=== PATIENT | female | born 1950 | race Caucasian/White ===

== ENCOUNTER 2020-07-14 16:33 | Emergency (ER) | payer MEDICARE, OTHER, SELFPAY ==
[2020-07-14] VITALS (30 sets, daily range): BP systolic 118–160; BP diastolic 67–96; PULSE 84–104; RESP 13–32; TEMP 37.8–38.6; O2SAT 85–100
--- NOTE | 2020-07-14 16:49 | DI.RAD.S_ITS ---
PROCEDURE: XR CHEST 1V INDICATIONS: suspected sepsis TECHNIQUE: One view of the chest was acquired. COMPARISON: None. FINDINGS: Surgical changes and devices: None. Lungs and pleura: Lungs are clear. No pleural effusions or pneumothorax. Mediastinum: Mediastinal contours appear normal. Heart size is normal. Bones and chest wall: Moderate rightward curvature of the upper thoracic spine. No suspicious bony lesions. Overlying soft tissues appear unremarkable. IMPRESSION: No acute process. Dictated by: Bennie Hoskins M.D. on 07/14/2020 at 16:23 Approved by: Bennie Hoskins M.D. on 07/14/2020 at 16:23
[2020-07-14 17:39] LABS: COVID19 -Nasal RAPID Negative (Negative)
[2020-07-14] MEDS: CEFTRIAXONE 1 GM/50 ML FROZ.PIGGY IV (17:50)
[2020-07-14] MEDS: ACETAMINOPHEN 325 MG TABLET 650 MG PO (17:50)
[2020-07-14 18:02] LABS: Add Manual Diff / Slide Review NO; Basophils Absolute Auto 0 /uL (0-100); Basophils Percent Auto 0.2 % (0-2); Eosinophils Absolute Auto 100 /uL (0-450); Eosinophils Percent Auto 0.9 % (2-4); Hematocrit 30.1 % (36-46); Hemoglobin 9.9 g/dL (12.0-16.0); Lymphocytes Absolute Auto 400 /uL (1100-4500); Lymphocytes Percent Auto 4.8 % (25-40); Mean Corpuscular HGB Conc 32.9 % (30-36); Mean Corpuscular Hemoglobin 33.8 PG (26-34); Mean Corpuscular Volume 102.6 fL (80-100); Monocytes Absolute Auto 700 /uL (0-900); Monocytes Percent Auto 9.2 % (3-14); Neutrophils Absolute Auto 6700 /uL (1500-7000); Neutrophils Percent Auto 84.9 % (50-75); Platelet Count 142 X10^3/uL (150-400); Red Blood Cell Count 2.93 X10^6/uL (4.0-5.2); White Blood Cell Count 7.9 X10^3/uL (4.5-11.0)
[2020-07-14 18:06] LABS: Alanine Aminotransferase 25 IU/L (<35); Albumin 3.3 g/dL (3.5-5.0); Albumin Globulin Ratio 1.1 (1.0-2.8); Alkaline Phosphatase 135 U/L (38-126); Aspartate Aminotransferase 34 IU/L (14-36); BUN Creatinine Ratio 9.7 (6-22); Bilirubin Total 0.3 mg/dL (0.2-1.3); Calcium 8.2 mg/dL (8.4-10.2); Carbon Dioxide 28 mmol/L (22-32); Chloride 94 mmol/L (98-107); Estimated Glomerular Filt Rate 3.3 mL/min (>60); Glucose 118 mg/dL (80-110); HEMOLYSIS < 15 (0-50); Lipase 189 U/L (23-300); Potassium 4.4 mmol/L (3.4-5.1); Sodium 134 mmol/L (137-145); Total Protein 6.3 g/dL (6.3-8.2)
[2020-07-14 18:11] LABS: Blood Urea Nitrogen 109 mg/dL (7-17)
--- NOTE | 2020-07-14 18:11 | ED.FEVER ---
HPI - Fever General Chief Complaint: Fever Stated Complaint: Dialysis, health decline, shakes,jittery Time Seen by Provider: 07/14/20 17:09 Source: patient Mode of arrival: Wheelchair Limitations: no limitations History of Present Illness HPI Narrative: Patient is a 69-year-old female with history of peritoneal dialysis presents today with 3 days of fever and not feeling well. states that he has noticed she has had significant decrease in appetite and she had 1 very large episode of diarrhea. He also says that during the last 3 days during peritoneal dialysis she has been short of breath but no other time. Patient actually has no complaints of chest pain or shortness of breath. She did have some complaints left-sided back pain but no longer has any back pain. She has no abdominal pain nausea or vomiting or chest pain. She states that she still does make urine but denies any dysuria or urinary frequency. She is noted to be febrile. She states that she does to check her peritoneal dialysis fluid every morning on has not noted any abnormality. MD complaint: fever Onset (ago): day(s) (3) Related Data Home Medications Medication Instructions Recorded Confirmed calcium carbonate [Antacid 200 mg PO TID 07/14/20 07/14/20 (calcium carbonate)] carvedilol 12.5 mg PO DAILY 07/14/20 07/14/20 furosemide 80 mg PO PRN PRN 07/14/20 07/14/20 Allergies Allergy/AdvReac Type Severity Reaction Status Date / Time Penicillins Allergy Unknown Verified 07/14/20 16:51 Review of Systems Review of Systems ROS Unobtainable: All systems reviewed & are unremarkable except as noted in HPI and below Constitutional Constitutional: Reports fatigue, Reports fever(s), Reports lethargy and Reports poor appetite Eyes Eyes: Denies change in vision, Denies eye discharge, Denies irritation and Denies loss of vision ENT Ears, Nose, Mouth, and Throat: Denies vertigo and Denies dizziness Cardiovascular Cardiovascular: Denies chest pain, Denies irregular heart rhythm, Denies lightheadedness, Denies palpitations, Reports dyspnea, Denies dyspnea on exertion and Denies orthopnea Respiratory Respiratory: Denies chest congestion, Denies cough, Denies pain on inspiration, Reports dyspnea and Denies dyspnea on exertion Gastrointestinal Gastrointestinal: Denies abdominal pain, Denies heartburn, Reports loose stools and Denies nausea Genitourinary Genitourinary: Reports as per HPI Genitourinary: Reports as per HPI Musculoskeletal Musculoskeletal: Denies arthralgias and Denies joint swelling Integumentary/Breasts Skin/Breast: Denies pruritus, Denies erythema, Denies rash and Denies wounds Neurologic Neurologic: Denies vertigo, Denies dizziness and Denies loss of vision Endocrine Endocrine: Reports fatigue and Denies palpitations Hematologic/Lymphatic Hematologic/Lymphatic: Denies easy bruising Patient History Medical History (Updated 07/14/20 @ 22:25 by Fara Reeder DO) Peritoneal dialysis catheter in place Renal failure Social History Smoking Status: Never smoker Smoking Status: Never smoker alcohol intake frequency: other Substance Use Type: does not use Exam Initial Vital Signs Initial Vital Signs: Vital Signs Temperature 101.5 F H 07/14/20 16:57 Pulse Rate 101 H 07/14/20 16:57 Respiratory Rate 21 07/14/20 16:57 Blood Pressure 149/74 H 07/14/20 16:57 Pulse Oximetry 100 07/14/20 16:57 GENERAL: Well-appearing, well-nourished and in no acute distress. HEENT: Head atraumatic,EOMI, pupils reactive, face symmetric, moist mucous membranes CARDIOVASCULAR: Regular rate and rhythm without murmurs, rubs or gallops. RESPIRATORY: Breath sounds equal bilaterally, no wheezes rales or rhonchi. ABDOMEN: Soft, nontender. Normoactive bowel sounds all 4 quadrants. No guarding or rebound. BACK: No vertebral tenderness no step-offs : No CVA tenderness EXTREMITIES: Normal range of motion, no clubbing or edema. Neurovascularly intact NEUROLOGICAL: Alert and oriented x4.Normal gait and speech. Cranial nerves II through XII grossly intact. SKIN: Warm, dry, no laceration, no petechiae, no rashes or lesions. Scores GCS Mik coma scale eye opening: Spontaneous Mik coma scale verbal response: Confused Mik coma scale motor response: Obey commands Mik coma scale total score: 14 Course Orders Ordered: ED Orders 07/14/20 16:49 XR chest 1V Stat EKG-12 Lead Stat RT Consult Eval and Treat Now 07/14/20 17:00 COVID19 Stat 07/14/20 17:15 Body Fluid Culture Stat Cell Count w Diff Body Fluid Stat 07/14/20 17:45 Blood Culture Stat Complete Blood Count AUTO DIFF Stat Comprehensive Metabolic Panel Stat Lactate (Lactic Acid) Stat Lipase Stat Partial Thromboplastin Time Stat Procalcitonin Stat Prothrombin Time INR Stat 07/14/20 17:52 Respiratory Panel (Film Array) Stat 07/14/20 18:17 Urine Culture Stat Urine Microscopic Stat 07/14/20 20:38 Arterial Blood Gas Stat Discontinued Medications Acetaminophen (Acetaminophen 325 Mg Tablet) 650 mg PO NOW ONE Stop: 07/14/20 16:57 Last Admin: 07/14/20 17:50 Dose: 650 mg Documented by: RONY Sodium Chloride (Normal Saline 0.9%) 1,000 mls @ 1,000 mls/hr IV BOLUS ONE Stop: 07/14/20 17:48 Last Admin: 07/14/20 16:55 Dose: Not Given Documented by: CHUCK Ceftriaxone Sodium/Dextrose (Rocephin) 1 gm in 50 mls @ 100 mls/hr IV NOW ONE Stop: 07/14/20 17:49 Last Infusion: 07/14/20 18:53 Dose: 0 mls/hr Documented by: Admin: 07/14/20 17:50 Dose: 100 mls/hr Documented by: RONY Sodium Chloride (Normal Saline 0.9%) 1,000 mls @ 125 mls/hr IV CONT ABELARDO Last Infusion: 07/14/20 23:16 Dose: 0 mls/hr Documented by: Infusion: 07/14/20 22:33 Dose: 0 mls/hr Documented by: Infusion: 07/14/20 20:43 Dose: 75 mls/hr Documented by: Admin: 07/14/20 20:19 Dose: 125 mls/hr Documented by: ALISSA Vital Signs Vital signs: Vital Signs - 8 hr 07/14/20 16:57 07/14/20 17:21 07/14/20 17:23 Temperature 101.5 F H Pulse Rate 101 H 100 H Respiratory Rate 21 32 H 17 Blood Pressure 149/74 H Pulse Oximetry 100 87 L 97 07/14/20 17:30 07/14/20 17:31 07/14/20 17:45 Temperature Pulse Rate 100 H 100 H 100 H Respiratory Rate 17 20 20 Blood Pressure 119/67 154/83 H Pulse Oximetry 100 98 98 07/14/20 17:50 07/14/20 18:00 07/14/20 18:05 Temperature 101.3 F H Pulse Rate 104 H 102 H Respiratory Rate 28 H Blood Pressure 160/96 H Pulse Oximetry 99 98 07/14/20 18:15 07/14/20 18:30 07/14/20 18:45 Temperature Pulse Rate 98 H 100 H 94 H Respiratory Rate Blood Pressure Pulse Oximetry 98 88 L 92 07/14/20 18:53 07/14/20 19:00 07/14/20 19:15 Temperature 100.1 F H Pulse Rate 94 H 92 H Respiratory Rate Blood Pressure Pulse Oximetry 92 93 07/14/20 19:30 07/14/20 19:45 07/14/20 20:00 Temperature Pulse Rate 90 90 91 H Respiratory Rate Blood Pressure Pulse Oximetry 93 92 07/14/20 20:14 07/14/20 20:15 07/14/20 20:30 Temperature Pulse Rate 88 87 86 Respiratory Rate 19 17 15 Blood Pressure 134/76 139/71 132/72 Pulse Oximetry 99 100 99 07/14/20 20:45 07/14/20 21:00 07/14/20 21:15 Temperature Pulse Rate 86 86 87 Respiratory Rate 21 15 15 Blood Pressure 118/72 130/74 128/71 Pulse Oximetry 96 93 92 07/14/20 21:30 07/14/20 21:45 07/14/20 22:00 Temperature Pulse Rate 88 88 84 Respiratory Rate 13 16 13 Blood Pressure 135/75 120/69 128/70 Pulse Oximetry 91 85 L 98 07/14/20 22:15 07/14/20 22:30 07/14/20 22:45 Temperature Pulse Rate 85 86 85 Respiratory Rate 20 14 13 Blood Pressure 125/74 130/75 140/77 Pulse Oximetry 97 98 99 MDM - Fever Lab Data Attestation: I reviewed the patient's lab results. Result diagrams: 07/14/20 17:45 07/14/20 17:45 Labs: Lab Results 07/14/20 07/14/20 07/14/20 Range/Units 17:00 17:15 17:45 WBC 7.9 (4.5-11.0) X10^3/uL RBC 2.93 L (4.0-5.2) X10^6/uL Hgb 9.9 L (12.0-16.0) g/dL Hct 30.1 L (36-46) % MCV 102.6 H (80-100) fL MCH 33.8 (26-34) PG MCHC 32.9 (30-36) % RDW 15.0 H (11.6-14.8) % Plt Count 142 L (150-400) X10^3/uL Neut % (Auto) 84.9 H (50-75) % Lymph % (Auto) 4.8 L (25-40) % [place] % (Auto) 9.2 (3-14) % Eos % (Auto) 0.9 L (2-4) % Baso % (Auto) 0.2 (0-2) % Neut # (Auto) 6700 (8705-5380) /uL Lymph # (Auto) 400 L (2838-7169) /uL [place] # (Auto) 700 (0-900) /uL Eos # (Auto) 100 (0-450) /uL Baso # (Auto) 0 (0-100) /uL PT (10.1-12.7) SECONDS INR (0.9-1.3) APTT (26.4-36.2) SECONDS ABG pH (7.35-7.45) ABG pCO2 (35-45) mmHg ABG pO2 (80-100) mmHg ABG HCO3 (22-26) mmol/L ABG Total CO2 (21-31) mmol/L ABG O2 Saturation (95-100) % ABG Base Excess (-2-2) mmol/L FiO2 Sodium (137-145) mmol/L Potassium (3.4-5.1) mmol/L Chloride (98-107) mmol/L Carbon Dioxide (22-32) mmol/L BUN (7-17) mg/dL Creatinine (0.52-1.04) mg/dL Estimated GFR (>60) mL/min BUN/Creatinine Ratio (6-22) Glucose (80-110) mg/dL Lactate (0.7-2.1) mmol/L Calcium (8.4-10.2) mg/dL Total Bilirubin (0.2-1.3) mg/dL AST (14-36) IU/L ALT (<35) IU/L Alkaline Phosphatase (38-126) U/L Total Protein (6.3-8.2) g/dL Albumin (3.5-5.0) g/dL Globulin (1.7-4.1) g/dL Albumin/Globulin Ratio (1.0-2.8) Lipase (23-300) U/L Procalcitonin (<0.5) ng/mL Urine RBC (0-5/HPF) Urine WBC (0-5/HPF) Ur Squamous Epith Cells (0-5/HPF) Urine Bacteria (None) Granular Casts (None) Ur Culture Indicated? Fluid Color Colorless Fluid Appearance Clear Fluid RBC 62 /uL Fld Tot Nucleated Cell 60 /uL Fluid Polynuclear WBCs 5 % Fluid Mononuclear WBCs 95 % Fluid Eosinophils 0 % Fluid Other Cells Not Reportable Body Fluid Clot No clots present Chlamy pneumoniae PCR (Not Detect) Adenovirus (PCR) (Not Detect) B.parapertussis DNA PCR (Not Detecte) Coronavirus OC43 (PCR) (Not Detect) Coronavirus HKU1 (PCR) (Not Detect) Coronavirus 229E (PCR) (Not Detect) SARS-CoV-2 (PCR) Negative (Negative) Coronavirus NL63 (PCR) (Not Detect) Human Metapneumovir PCR (Not Detect) Influenza Type A (PCR) (Not Detect) Influenza Type B (PCR) (Not Detect) M. pneumoniae (PCR) (Not Detect) Parainfluenza 1 (PCR) (Not Detect) Parainfluenza 2 (PCR) (Not Detect) Parainfluenza 3 (PCR) (Not Detect) Parainfluenza 4 (PCR) (Not Detect) RSV (PCR) (Not Detect) Entero/Rhino (PCR) (Not Detect) 07/14/20 07/14/20 07/14/20 Range/Units 17:45 17:45 17:45 WBC (4.5-11.0) X10^3/uL RBC (4.0-5.2) X10^6/uL Hgb (12.0-16.0) g/dL Hct (36-46) % MCV (80-100) fL MCH (26-34) PG MCHC (30-36) % RDW (11.6-14.8) % Plt Count (150-400) X10^3/uL Neut % (Auto) (50-75) % Lymph % (Auto) (25-40) % [place] % (Auto) (3-14) % Eos % (Auto) (2-4) % Baso % (Auto) (0-2) % Neut # (Auto) (7331-9010) /uL Lymph # (Auto) (2070-1015) /uL [place] # (Auto) (0-900) /uL Eos # (Auto) (0-450) /uL Baso # (Auto) (0-100) /uL PT 12.4 (10.1-12.7) SECONDS INR 1.1 (0.9-1.3) APTT 26 L (26.4-36.2) SECONDS ABG pH (7.35-7.45) ABG pCO2 (35-45) mmHg ABG pO2 (80-100) mmHg ABG HCO3 (22-26) mmol/L ABG Total CO2 (21-31) mmol/L ABG O2 Saturation (95-100) % ABG Base Excess (-2-2) mmol/L FiO2 Sodium 134 L (137-145) mmol/L Potassium 4.4 (3.4-5.1) mmol/L Chloride 94 L (98-107) mmol/L Carbon Dioxide 28 (22-32) mmol/L BUN 109 H* (7-17) mg/dL Creatinine 11.29 H* (0.52-1.04) mg/dL Estimated GFR 3.3 L (>60) mL/min BUN/Creatinine Ratio 9.7 (6-22) Glucose 118 H (80-110) mg/dL Lactate 1.0 (0.7-2.1) mmol/L Calcium 8.2 L (8.4-10.2) mg/dL Total Bilirubin 0.3 (0.2-1.3) mg/dL AST 34 (14-36) IU/L ALT 25 (<35) IU/L Alkaline Phosphatase 135 H (38-126) U/L Total Protein 6.3 (6.3-8.2) g/dL Albumin 3.3 L (3.5-5.0) g/dL Globulin 3.0 (1.7-4.1) g/dL Albumin/Globulin Ratio 1.1 (1.0-2.8) Lipase 189 (23-300) U/L Procalcitonin 6.75 H (<0.5) ng/mL Urine RBC (0-5/HPF) Urine WBC (0-5/HPF) Ur Squamous Epith Cells (0-5/HPF) Urine Bacteria (None) Granular Casts (None) Ur Culture Indicated? Fluid Color Fluid Appearance Fluid RBC /uL Fld Tot Nucleated Cell /uL Fluid Polynuclear WBCs % Fluid Mononuclear WBCs % Fluid Eosinophils % Fluid Other Cells Body Fluid Clot Chlamy pneumoniae PCR (Not Detect) Adenovirus (PCR) (Not Detect) B.parapertussis DNA PCR (Not Detecte) Coronavirus OC43 (PCR) (Not Detect) Coronavirus HKU1 (PCR) (Not Detect) Coronavirus 229E (PCR) (Not Detect) SARS-CoV-2 (PCR) (Negative) Coronavirus NL63 (PCR) (Not Detect) Human Metapneumovir PCR (Not Detect) Influenza Type A (PCR) (Not Detect) Influenza Type B (PCR) (Not Detect) M. pneumoniae (PCR) (Not Detect) Parainfluenza 1 (PCR) (Not Detect) Parainfluenza 2 (PCR) (Not Detect) Parainfluenza 3 (PCR) (Not Detect) Parainfluenza 4 (PCR) (Not Detect) RSV (PCR) (Not Detect) Entero/Rhino (PCR) (Not Detect) 07/14/20 07/14/20 07/14/20 Range/Units 17:50 17:52 18:17 WBC (4.5-11.0) X10^3/uL RBC (4.0-5.2) X10^6/uL Hgb (12.0-16.0) g/dL Hct (36-46) % MCV (80-100) fL MCH (26-34) PG MCHC (30-36) % RDW (11.6-14.8) % Plt Count (150-400) X10^3/uL Neut % (Auto) (50-75) % Lymph % (Auto) (25-40) % [place] % (Auto) (3-14) % Eos % (Auto) (2-4) % Baso % (Auto) (0-2) % Neut # (Auto) (6197-3232) /uL Lymph # (Auto) (1651-5412) /uL [place] # (Auto) (0-900) /uL Eos # (Auto) (0-450) /uL Baso # (Auto) (0-100) /uL PT (10.1-12.7) SECONDS INR (0.9-1.3) APTT (26.4-36.2) SECONDS ABG pH (7.35-7.45) ABG pCO2 (35-45) mmHg ABG pO2 (80-100) mmHg ABG HCO3 (22-26) mmol/L ABG Total CO2 (21-31) mmol/L ABG O2 Saturation (95-100) % ABG Base Excess (-2-2) mmol/L FiO2 Sodium (137-145) mmol/L Potassium (3.4-5.1) mmol/L Chloride (98-107) mmol/L Carbon Dioxide (22-32) mmol/L BUN (7-17) mg/dL Creatinine (0.52-1.04) mg/dL Estimated GFR (>60) mL/min BUN/Creatinine Ratio (6-22) Glucose (80-110) mg/dL Lactate (0.7-2.1) mmol/L Calcium (8.4-10.2) mg/dL Total Bilirubin (0.2-1.3) mg/dL AST (14-36) IU/L ALT (<35) IU/L Alkaline Phosphatase (38-126) U/L Total Protein (6.3-8.2) g/dL Albumin (3.5-5.0) g/dL Globulin (1.7-4.1) g/dL Albumin/Globulin Ratio (1.0-2.8) Lipase (23-300) U/L Procalcitonin (<0.5) ng/mL Urine RBC 5-10/hpf H (0-5/HPF) Urine WBC 5-10/hpf H (0-5/HPF) Ur Squamous Epith Cells 1-5 /hpf (0-5/HPF) Urine Bacteria Few (2-10) H (None) Granular Casts 0-1/lpf (None) Ur Culture Indicated? Specimen cultured Fluid Color Fluid Appearance Fluid RBC /uL Fld Tot Nucleated Cell /uL Fluid Polynuclear WBCs % Fluid Mononuclear WBCs % Fluid Eosinophils % Fluid Other Cells Body Fluid Clot Chlamy pneumoniae PCR Not detected (Not Detect) Adenovirus (PCR) Not detected (Not Detect) B.parapertussis DNA PCR Not detected Not detected (Not Detecte) Coronavirus OC43 (PCR) Not detected (Not Detect) Coronavirus HKU1 (PCR) Not detected (Not Detect) Coronavirus 229E (PCR) Not detected (Not Detect) SARS-CoV-2 (PCR) Not detected (Negative) Coronavirus NL63 (PCR) Not detected (Not Detect) Human Metapneumovir PCR Not detected (Not Detect) Influenza Type A (PCR) Not detected (Not Detect) Influenza Type B (PCR) Not detected (Not Detect) M. pneumoniae (PCR) Not detected (Not Detect) Parainfluenza 1 (PCR) Not detected (Not Detect) Parainfluenza 2 (PCR) Not detected (Not Detect) Parainfluenza 3 (PCR) Not detected (Not Detect) Parainfluenza 4 (PCR) Not detected (Not Detect) RSV (PCR) Not detected (Not Detect) Entero/Rhino (PCR) Not detected (Not Detect) 07/14/20 Range/Units 20:38 WBC (4.5-11.0) X10^3/uL RBC (4.0-5.2) X10^6/uL Hgb (12.0-16.0) g/dL Hct (36-46) % MCV (80-100) fL MCH (26-34) PG MCHC (30-36) % RDW (11.6-14.8) % Plt Count (150-400) X10^3/uL Neut % (Auto) (50-75) % Lymph % (Auto) (25-40) % [place] % (Auto) (3-14) % Eos % (Auto) (2-4) % Baso % (Auto) (0-2) % Neut # (Auto) (8842-9513) /uL Lymph # (Auto) (1333-7048) /uL [place] # (Auto) (0-900) /uL Eos # (Auto) (0-450) /uL Baso # (Auto) (0-100) /uL PT (10.1-12.7) SECONDS INR (0.9-1.3) APTT (26.4-36.2) SECONDS ABG pH 7.29 L* (7.35-7.45) ABG pCO2 51.7 H (35-45) mmHg ABG pO2 104 H (80-100) mmHg ABG HCO3 25 (22-26) mmol/L ABG Total CO2 26 (21-31) mmol/L ABG O2 Saturation 97 (95-100) % ABG Base Excess -2.0 (-2-2) mmol/L FiO2 28 Sodium (137-145) mmol/L Potassium (3.4-5.1) mmol/L Chloride (98-107) mmol/L Carbon Dioxide (22-32) mmol/L BUN (7-17) mg/dL Creatinine (0.52-1.04) mg/dL Estimated GFR (>60) mL/min BUN/Creatinine Ratio (6-22) Glucose (80-110) mg/dL Lactate (0.7-2.1) mmol/L Calcium (8.4-10.2) mg/dL Total Bilirubin (0.2-1.3) mg/dL AST (14-36) IU/L ALT (<35) IU/L Alkaline Phosphatase (38-126) U/L Total Protein (6.3-8.2) g/dL Albumin (3.5-5.0) g/dL Globulin (1.7-4.1) g/dL Albumin/Globulin Ratio (1.0-2.8) Lipase (23-300) U/L Procalcitonin (<0.5) ng/mL Urine RBC (0-5/HPF) Urine WBC (0-5/HPF) Ur Squamous Epith Cells (0-5/HPF) Urine Bacteria (None) Granular Casts (None) Ur Culture Indicated? Fluid Color Fluid Appearance Fluid RBC /uL Fld Tot Nucleated Cell /uL Fluid Polynuclear WBCs % Fluid Mononuclear WBCs % Fluid Eosinophils % Fluid Other Cells Body Fluid Clot Chlamy pneumoniae PCR (Not Detect) Adenovirus (PCR) (Not Detect) B.parapertussis DNA PCR (Not Detecte) Coronavirus OC43 (PCR) (Not Detect) Coronavirus HKU1 (PCR) (Not Detect) Coronavirus 229E (PCR) (Not Detect) SARS-CoV-2 (PCR) (Negative) Coronavirus NL63 (PCR) (Not Detect) Human Metapneumovir PCR (Not Detect) Influenza Type A (PCR) (Not Detect) Influenza Type B (PCR) (Not Detect) M. pneumoniae (PCR) (Not Detect) Parainfluenza 1 (PCR) (Not Detect) Parainfluenza 2 (PCR) (Not Detect) Parainfluenza 3 (PCR) (Not Detect) Parainfluenza 4 (PCR) (Not Detect) RSV (PCR) (Not Detect) Entero/Rhino (PCR) (Not Detect) Urine Dip Bedside Urine Glucose Negative Bedside Urine Bilirubin - Negative Bedside Urine Ketone - Negative Urine Specific [place] 1.020 Bedside Urine Occult Blood +++ Bedside Urine pH 6.0 Bedside Urine Protein ++ 100 Bedside Urine Urobilinogen - Negative Bedside Urine Nitrite - Negative Bedside Urine Leukocytes + 70 Esterase Imaging Data Chest x-ray: Radiologist's Impression: PROCEDURE: XR CHEST 1V INDICATIONS: suspected sepsis TECHNIQUE: One view of the chest was acquired. COMPARISON: None. FINDINGS: Surgical changes and devices: None. Lungs and pleura: Lungs are clear. No pleural effusions or pneumothorax. Mediastinum: Mediastinal contours appear normal. Heart size is normal. Bones and chest wall: Moderate rightward curvature of the upper thoracic spine. No suspicious bony lesions. Overlying soft tissues appear unremarkable. IMPRESSION: No acute process. Dictated by: Bennie Hoskins M.D. on 07/14/2020 at 16:23 Approved by: Bennie Hoskins M.D. on 07/14/2020 at 16:23 ECG Data Attestation: I personally reviewed and interpreted this ECG as follows: Prior ECG tracings: not available for review Interpretation: Normal sinus rhythm rate 100 p.r. interval 130 QRS 92 QTC 405 slight artifact noted no significant ST changes MDM Narrative Medical decision making narrative: Patient seems a little confused, likely due to infection and acute on chronic renal failure. She is found to have UTI. No concern for SBP at this time. Creatinine and BUN are significantly elevated concern peritoneal dialysis is not working adequately and she currently has infection. Not able to keep dialysis patients here at this hospital. 20:20 Dr. Prakash at [facility] updated on patient's symptoms test regards also requests ABG and call back also request talked to Nephrology 20:30 and non Nephrology updated patient's symptoms test results happy to consult on patient Dr. Wagoner updated on ABG requested patient be placed on BiPAP The patient is in no apparent respiratory distress she is able to follow commands and is currently refusing BiPAP Discharge Plan Departure Patient Disposition: [facility] Clinical Impression: Acute on chronic kidney failure, Acute UTI Prescriptions: No Action carvedilol 12.5 mg tablet 12.5 mg PO DAILY RF: 0 furosemide 80 mg tablet 80 mg PO PRN PRN (Reason: fluid overload) RF: 0 calcium carbonate [Antacid (calcium carbonate)] 200 mg calcium (500 mg) Tablet,Chewable 200 mg PO TID RF: 0
[2020-07-14 18:16] LABS: Body Fluid Tot Nucleated Cells 60 /uL
--- NOTE | 2020-07-14 18:16 | PC.NURSE ---
Critical BUN 109/ Creat 11.3 called from Lab. Reported to Dr Reeder. No orders at this time.
[2020-07-14 18:19] LABS: Body Fluid Red Blood Cells 62 /uL
[2020-07-14 18:22] LABS: INR 1.1 (0.9-1.3); Prothrombin Time 12.4 SECONDS (10.1-12.7)
[2020-07-14 18:23] LABS: Procalcitonin 6.75 ng/mL (<0.5)
[2020-07-14 18:25] LABS: PTT Partial Thromboplastin Tim 26 SECONDS (26.4-36.2)
[2020-07-14 18:30] LABS: Bacteria Urine Few (2-10); RBC Urine 5-10/HPF (0-5/HPF); Squamous Epithelial Cell Urine 1-5 /HPF (0-5/HPF); WBC Urine 5-10/HPF (0-5/HPF)
[2020-07-14 18:31] LABS: Culture Indicated Urine Specimen Cultured; Granular Casts Urine 0-1/LPF
[2020-07-14 18:46] LABS: Body Fluid Appearance CLEAR; Body Fluid Clotted? NO CLOTS PRESENT; Body Fluid Color COLORLESS
[2020-07-14 18:47] LABS: Eosinophils Body Fluid 0 %; Mononuclear WBC Body Fluid 95 %; Polynuclear WBC Body Fluid 5 %
[2020-07-14 19:30] LABS: Adenovirus Not Detected (Not Detect); B. parapertussis Not Detected (Not Detecte); Chlamydophila pneumoniae Not Detected (Not Detect); Coronavirus 229E Not Detected (Not Detect); Coronavirus HKU1 Not Detected (Not Detect); Coronavirus NL 63 Not Detected (Not Detect); Coronavirus OC43 Not Detected (Not Detect); Human Metapneumovirus Not Detected (Not Detect); Human Rhinovirus/Enterovirus Not Detected (Not Detect); Influenza A Not Detected (Not Detect); Influenza B Not Detected (Not Detect); Mycoplasma pneumoniae Not Detected (Not Detect); Parainfluenza Virus 1 Not Detected (Not Detect); Parainfluenza Virus 2 Not Detected (Not Detect); Parainfluenza Virus 3 Not Detected (Not Detect); Parainfluenza Virus 4 Not Detected (Not Detect); Respiratory Syncytial Virus Not Detected (Not Detect); SARS- CoV-2 Not Detected (Not Detecte)
[2020-07-14] MEDS: SODIUM CHLORIDE 0.9% 1,000 ML 125 ML IV (20:19)
[2020-07-14 20:54] LABS: Fractionated Inspired Oxygen 28; HCO3 ABG 25 mmol/L (22-26); Oxygen Saturation ABG 97 % (95-100); PCO2 ABG 51.7 mmHg (35-45); PO2 ABG 104 mmHg (80-100); TCO2 ABG 26 mmol/L (21-31); pH ABG 7.29 (7.35-7.45)
[2020-07-14 21:00] LABS: Bordetella pertussis Not Detected (Not Detect)
== END 2020-07-14 23:16 | disposition short-term general hospital (02) ==
PROVIDERS: Emergency Medicine; Emergency Provider Emergency Medicine
DX: N17.9 Acute kidney failure, unspecified (principal); N39.0 Urinary tract infection, site not specified; R19.7 Diarrhea, unspecified; M54.9 Dorsalgia, unspecified; R53.83 Other fatigue; R06.00 Dyspnea, unspecified; Z20.822 Contact with and (suspected) exposure to COVID-19
CPT/HCPCS: 36415; 36600; 71045; 80053; 81003; 81015; 82805; 83605; 83690; 84145; 85025; 85610; 85730; 87040; 87070; 87075; 87086; 87205; 87633; 87635; 89051; 93005; 96361; 96365; 99284; C9803

== ENCOUNTER 2021-06-13 16:04 | Emergency (ER) | payer MEDICARE, OTHER, SELFPAY ==
[2021-06-13 16:18] VITALS: BP 131/68; PULSE 95; RESP 16; TEMP 36.6; O2SAT 94
--- NOTE | 2021-06-13 16:24 | DI.RAD.S_ITS ---
PROCEDURE: XR KNEE LT 3V INDICATIONS: fall, open wound TECHNIQUE: 3 views of the knee were acquired. COMPARISON: None. FINDINGS: Bones: No acute fractures or dislocations. No suspicious bony lesions. Diffuse osteopenia. Moderate tricompartmental degenerative changes. Soft tissues: There is a large soft tissue defect overlying the anterior, medial aspect of the left knee with probable small joint effusion. No suspicious soft tissue calcifications. Dense atherosclerotic calcifications of the left lower extremity. IMPRESSION: Large soft tissue defect overlying the anterior, medial aspect of the left knee without underlying fracture or dislocation. Probable small joint effusion. No radiopaque soft tissue foreign bodies. If there is persistent clinical concern for occult fracture given adequate mechanism of injury, consider repeat imaging in 10-14 days. Dictated by: Addison Etienne M.D. on 06/13/2021 at 17:26 Approved by: Addison Etienne M.D. on 06/13/2021 at 17:28
[2021-06-13 17:08] VITALS: BP 140/65; PULSE 79; O2SAT 98
[2021-06-13 17:30] VITALS: BP 134/61; PULSE 81; O2SAT 98
--- NOTE | 2021-06-13 17:45 | ED_ITS ---
HPI - Extremity Injury (Lower) <GENIE Bustos - Last Filed: 06/13/21 20:46> General Chief Complaint: Extremity Injury, Lower Stated Complaint: KNEE PAIN LEFT Time Seen by Provider: 06/13/21 17:17 Source: patient Mode of arrival: Wheelchair History of Present Illness HPI Narrative: This is a 70-year-old female who presents to the emergency department after going to [facility] this morning for a 16cm laceration to her left knee. Patient fell 20 days ago and sustained a large laceration to her left knee and had this sutured up which was sutured for a total of 20 days. Patient states that she was prescribed doxycycline 3 days ago, her sutures were recently taken out, and this morning when she fell she dehisced the wound VAC open, it appears to have poorly healed, she has multiple abrasions which are weeping on her left lower extremity. Patient has a history of stage 4 kidney disease. She states that she fell so quick she did not have time to catch herself. She denies hitting her head, loss of consciousness, any vomiting or nausea. She denies any weakness in her legs. Related Data Home Medications Medication Instructions Recorded Confirmed calcium carbonate 200 mg calcium 200 mg PO TID 07/14/20 07/14/20 (500 mg) chewable tablet (Antacid (calcium carbonate)) carvedilol 12.5 mg tablet 12.5 mg PO DAILY 07/14/20 07/14/20 furosemide 80 mg tablet 80 mg PO PRN PRN 07/14/20 07/14/20 Allergies Allergy/AdvReac Type Severity Reaction Status Date / Time Penicillins Allergy Unknown Verified 06/15/21 16:15 Review of Systems <GENIE Bustos - Last Filed: 06/13/21 20:46> Review of Systems Narrative: General: denies fever, chills Head/Neck: denies headache, neck pain Eyes: denies visual changes, eye pain Cardio: denies chest pain, palpitations Respiratory: denies shortness of breath, cough GI: denies abdominal pain, nausea, vomiting, or diarrhea : denies dysuria, hematuria MSK: denies joint pain, muscle weakness, large laceration to left knee Skin: denies rash, itching Neuro: denies numbness, tingling Patient History <GENIE Bustos - Last Filed: 06/13/21 20:46> Medical History Peritoneal dialysis catheter in place Renal failure Social History Smoking Status: Never smoker Smoking Status: Never smoker alcohol intake frequency: other Substance Use Type: does not use Exam <GENIE Bustos - Last Filed: 06/13/21 20:46> Narrative Exam Narrative: Independently reviewed vitals signs and nursing notes. General: Awake, alert, nontoxic, no cardiorespiratory distress Head/Neck: Atraumatic, neck full range of motion Eyes: EOMI, conjunctiva normal Nose: nares patent, no rhinorrhea Mouth/Throat: moist mucus membranes, posterior pharynx normal, no oral lesions Cardio: Regular rate and rhythm, no peripheral edema Respiratory: respirations unlabored without wheezing, stridor, or rales. No retractions. GI: Abdomen soft, nontender MSK: Moves all extremities, neurovascularly intact Skin: Normal capillary refill, no rash, multiple areas of ecchymosis and small abrasions from her original fall. 16.5 cm x 5 cm laceration which is C shaped around her left patella. This wound previously was not fully closed and wound margins needed revised to pull together due to crusting/clot and hardened skin. Neuro: Normal speech and cognition, normal gait Initial Vital Signs Initial Vital Signs: Vital Signs Temperature 97.8 F 06/13/21 16:18 Pulse Rate 95 H 06/13/21 16:18 Respiratory Rate 16 06/13/21 16:18 Blood Pressure 131/68 06/13/21 16:18 Pulse Oximetry 94 06/13/21 16:18 <Chente Salazar DO - Last Filed: 06/18/21 07:02> Initial Vital Signs Initial Vital Signs: Vital Signs Temperature 97.8 F 06/13/21 16:18 Pulse Rate 95 H 06/13/21 16:18 Respiratory Rate 16 06/13/21 16:18 Blood Pressure 131/68 06/13/21 16:18 Pulse Oximetry 94 06/13/21 16:18 Procedures <GENIE Bustos - Last Filed: 06/13/21 20:46> Laceration Repair Laceration 1: Site: lower extremity Side (If applicable): left Size (cm): 16.5 Description: flap Depth: simple, single layer Local Anesthetic: lidocaine 1% and with bicarb Amount of anesthesia used (mL): 20 Pre-repair: wound explored, irrigated extensively, deep structures intact, extensive debridement and wound margins revised Skin layer closed with: nylon Size (cm): 5-0 Number of sutures: 18 Technique: simple, interrupted and horizontal mattress Subcutaneous layer closed with: chromic gut Size: 4-0 Number of sutures: 7 Technique: simple, interrupted Orthopedic Splinting/Casting Injury #1: Lower Extremity Injury Location: knee Lower Extremity Immobilizer: knee immobilizer Post splinting neuro exam: intact and no change Post splinting vascular exam: intact Placed by: Nursing Additional Comments: Patient has a walker and cane at home to ambulate. She was able to ambulate without difficulty to the wheelchair for discharge Course <[facility] - Last Filed: 06/13/21 20:46> Orders Ordered: Discontinued Medications Bacitracin (Bacitracin Oint 0.9 Gm Pckt) 3 applic TOP NOW ONE Stop: 06/13/21 19:39 Last Admin: 06/13/21 20:06 Dose: 3 applic Documented by: SALLIE Doxycycline Hyclate (Doxycycline Hyclate 100 Mg Tablet) 100 mg PO NOW ONE Stop: 06/13/21 20:01 Last Admin: 06/13/21 20:06 Dose: 100 mg Documented by: SALLIE Lidocaine HCl (Lidocaine 1% 20 Ml) 20 ml INJ INTRA-OP ONE Stop: 06/13/21 17:51 Last Admin: 06/13/21 18:45 Dose: 20 ml Documented by: KEVIN Lidocaine/Sodium Bicarbonate (Lido 1%/Sod Bicarb 8.4% (10ml) 10 Ml Syringe) 10 ml INJ NOW ONE Stop: 06/13/21 17:18 Last Admin: 06/13/21 18:20 Dose: 10 ml Documented by: KEVIN Vital Signs Vital signs: Vital Signs - 8 hr 06/13/21 16:18 06/13/21 17:08 06/13/21 17:30 Temperature 97.8 F Pulse Rate 95 H 79 81 Respiratory Rate 16 Blood Pressure 131/68 140/65 134/61 Pulse Oximetry 94 98 98 06/13/21 20:13 Temperature Pulse Rate 83 Respiratory Rate 18 Blood Pressure 145/74 H Pulse Oximetry 98 <Chente Salazar DO - Last Filed: 06/18/21 07:02> Orders Ordered: Discontinued Medications Bacitracin (Bacitracin Oint 0.9 Gm Pckt) 3 applic TOP NOW ONE Stop: 06/13/21 19:39 Last Admin: 06/13/21 20:06 Dose: 3 applic Documented by: SALLIE Doxycycline Hyclate (Doxycycline Hyclate 100 Mg Tablet) 100 mg PO NOW ONE Stop: 06/13/21 20:01 Last Admin: 06/13/21 20:06 Dose: 100 mg Documented by: SALLIE Lidocaine HCl (Lidocaine 1% 20 Ml) 20 ml INJ INTRA-OP ONE Stop: 06/13/21 17:51 Last Admin: 06/13/21 18:45 Dose: 20 ml Documented by: KEVIN Lidocaine/Sodium Bicarbonate (Lido 1%/Sod Bicarb 8.4% (10ml) 10 Ml Syringe) 10 ml INJ NOW ONE Stop: 06/13/21 17:18 Last Admin: 06/13/21 18:20 Dose: 10 ml Documented by: KEVIN Vital Signs Vital signs: Vital Signs - 8 hr 06/13/21 16:18 06/13/21 17:08 06/13/21 17:30 Temperature 97.8 F Pulse Rate 95 H 79 81 Respiratory Rate 16 Blood Pressure 131/68 140/65 134/61 Pulse Oximetry 94 98 98 06/13/21 20:13 Temperature Pulse Rate 83 Respiratory Rate 18 Blood Pressure 145/74 H Pulse Oximetry 98 MDM - Extremity Injury (Lower) <GENIE Bustos - Last Filed: 06/13/21 20:46> Imaging Data Extremity x-ray #1: Radiologist's Impression: PROCEDURE:? XR KNEE LT 3V ? INDICATIONS:? fall, open wound ? TECHNIQUE:? 3 views of the knee were acquired.? ? COMPARISON:? None. ? FINDINGS:? ? Bones:? No acute fractures or dislocations.? No suspicious bony lesions.? Diffuse osteopenia.? Moderate tricompartmental degenerative changes. ? Soft tissues:? There is a large soft tissue defect overlying the anterior, medial aspect of the left knee with probable small joint effusion.? No suspicious soft tissue calcifications.? Dense atherosclerotic calcifications of the left lower extremity. ? ? IMPRESSION:? Large soft tissue defect overlying the anterior, medial aspect of the left knee without underlying fracture or dislocation.? Probable small joint effusion. No radiopaque soft tissue foreign bodies. ? ? If there is persistent clinical concern for occult fracture given adequate mechanism of injury, consider repeat imaging in 10-14 days. ? ? ? Dictated by: Addison Etienne M.D. on 06/13/2021 at 17:26 ? ? Approved by: Addison Etienne M.D. on 06/13/2021 at 17:28 ? MDM Narrative Medical decision making narrative: This is a 70-year-old female presents to the emergency department sent over from [facility] for a 16 cm dehisced laceration to her left knee which was poorly healing. She was started on doxycycline 3 days ago for presumed poor wound healing after having her stitches removed 1 week ago. She states that they were left in for 14 days. She tripped on something and fell directly down on her left knee reopening her prior wound and tearing the medial aspect of the skin even further. Her wound is 16.5 x 5 cm with a large flap in a C shape. Multiple subcutaneous sutures were placed to pull wound edges together, wound margins knee needed revision near the medial aspect. Patient's wound was never pulled fully together, there was dried hard crusted tissue along the wound margin. This was removed, and sewn together without difficulty. Patient is already on doxycycline for a total of 7 day course, this was extended for a total of 10 days. Suture repair took approximately 1.5 hours. understands to follow-up with her primary care provider in the next 1-2 days for a recheck and to have her sutures removed in 14 days. She was fitted in a knee immobilizer and instructed to sleep in it and wear it at all times while her sutures are in in where pertinent additional 1 week afterwards. She was instructed to change her dressings twice a day, keep it clean, take her antibiotics as prescribed and was given strict return precautions. Patient's tetanus is up-to-date. She declined any pain medication. Is appropriate and amenable to discharge home. Vital signs are stable on repeat examination is unremarkable. Patient has been informed of results. Patient has been given strict return to ER precautions for any new or worsening symptoms. Patient understands to follow up closely with outpatient providers as instructed. Patient understands plan and agrees to discharge home. All questions and concerns answered at this time. Discharge Plan Departure Patient Disposition: Home Clinical Impression: Dehiscence of laceration repair Qualifiers: Encounter type: initial encounter Qualified Code(s): T81.33XA - Disruption of traumatic injury wound repair, initial encounter Instructions: DI for Laceration Repair -- Complex Activity Restrictions/Additional Instructions: *You have been diagnosed with a large laceration to your left knee, 16.5 cm. Please follow-up with your primary care provider in 14 days for suture removal. Please take your antibiotics that you are prescribed for an additional 3 days for a total of 10 days until they are gone. You can pick these up at [facility] in [place]. Please keep your knee in a knee immobilizer for the whole time your sutures are in and for 1 week afterwards to help the tissue tacked together. Please use your walker and a cane to get around. Please sleep in your knee immobilizer as well to prevent any knee bending in her sleep and if you get up in the night. Please keep your open wounds covered with at minimum a Band-Aid, change it at least once a day. Follow-up with your doctor in the next week for a checkup. *What to do: *Please continue to take your regular medications as directed. [ ] New medication prescriptions sent to your pharmacy: [ ] [ ] New medication written as a paper prescription [x ] No new medications given *Please follow up with your primary care provider in 2-3 days, call for an appointment. Let them know you were seen in the Emergency Department and that we ask that you be seen in follow up. We will electronically transmit a record of today's note if your PCP is in our system *If you do not have a primary care provider please contact the [facility] Resource line at [phone]. They will ask some questions about your medical history and help get you set up with a doctor in the community. *Return to Emergency Department if you should have any new, worsening or concerning symptoms, such as [fever greater than 101F, chills, worsening pain, persistent vomiting or other bothersome symptoms] Prescriptions: No Action carvedilol 12.5 mg tablet 12.5 mg PO DAILY 0RF furosemide 80 mg tablet 80 mg PO PRN PRN (Reason: fluid overload) 0RF calcium carbonate [Antacid (calcium carbonate)] 200 mg calcium (500 mg) Tablet,Chewable 200 mg PO TID 0RF Referrals: Deric Andrew MD [Non-Staff] - As soon as possible <Chente Salazar DO - Last Filed: 06/18/21 07:02> Cosign ED Attending Cosignature Attestation: Dr Salazar Co-Sign Statement: I was available for consultation during this patient's emergency department visit. This chart is signed by myself for administrative purposes only. I did not have direct contact with this patient during this visit. They were seen independently by the APC.
[2021-06-13] MEDS: LIDO 1%/SOD BICARB 8.4% (10ML) 10 ML SYRINGE INJ (18:20)
[2021-06-13] MEDS: LIDOCAINE 1% 20 ML INJ (18:45)
--- NOTE | 2021-06-13 18:47 | PC.NURSE ---
Pt states she fell this morning at home while using her walker. Presents in the ED with a skin tear of the right knee, a seeping calf wound of the lower lewt extremity that has recently been examined by her PCP and a 16cm left knee de-gloving. Provider at the bedside, jese prior to wound cleansing x 3, provider suturing injury at bedside.
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
[2021-06-13] MEDS: BACITRACIN OINT 0.9 GM PCKT 3 APPLIC TOP (20:06)
[2021-06-13] MEDS: DOXYCYCLINE HYCLATE 100 MG TABLET PO (20:06)
[2021-06-13 20:13] VITALS: BP 145/74; PULSE 83; RESP 18; O2SAT 98
== END 2021-06-13 20:20 | disposition home or self-care (01) ==
PROVIDERS: Emergency Provider Nurse Practitioner Critical Care Medicine
DX: T81.33XA Disruption of traumatic injury wound repair, initial encounter (principal); W01.0XXA Fall on same level from slipping, tripping and stumbling without subsequent striking against object, initial encounter
CPT/HCPCS: 12005; 73562; 99283; 99284

== ENCOUNTER 2021-06-15 13:40 | Emergency (ER) | payer MEDICARE, OTHER, SELFPAY ==
[2021-06-15] VITALS (14 sets, daily range): BP systolic 122–150; BP diastolic 60–71; PULSE 98–113; RESP 15–28; TEMP 35.5–36.2; O2SAT 92–98
--- NOTE | 2021-06-15 13:57 | DI.RAD.S_ITS ---
PROCEDURE: XR CHEST 1V INDICATIONS: chest pain TECHNIQUE: One view of the chest was acquired. COMPARISON: [facility], CR, XR CHEST 1V, 07/14/2020, 17:09. FINDINGS: Surgical changes and devices: None. Lungs and pleura: There is hyperinflation and chronic interstitial changes without focal infiltrate, pleural effusion or pneumothorax. Mediastinum: Heart size is enlarged. Atherosclerotic vascular calcification noted in the aortic arch. Bones and chest wall: No suspicious bony lesions. Overlying soft tissues appear unremarkable. Generalized decrease in osseous mineralization noted. Convex right thoracic scoliosis IMPRESSION: Hyperinflation and chronic interstitial changes without pneumothorax Approved by: Santos Kovacs M.D. on 06/15/2021 at 14:20
--- NOTE | 2021-06-15 14:04 | ED_ITS ---
HPI - General Adult General Chief complaint: Trauma Stated complaint: Fall Time Seen by Provider: 06/15/21 14:03 History of Present Illness HPI narrative: 70-year-old woman with chronic kidney disease on peritoneal dialysis, presents after a fall in her bathtub where she fell forward with the majority of the impact on the central portion of her maxilla. Her called 911. She has significant bruising over bruit both eyes right greater than left is missing tooth 9. #8 is significantly displaced and she appears to have mandibular fracture. She will respond to direct questioning but not much more beyond that she is moving all extremities. She was seen 2 days ago here after having a wound dehiscence of her left knee. Apparently 3 weeks ago she found that fell down the stairs had a large wound to the knee that was repaired sutures were removed after 20 days she fell again and wound reopened. Sutures are currently in place. Related Data Home Medications Medication Instructions Recorded Confirmed calcium carbonate 200 mg calcium 200 mg PO TID 07/14/20 07/14/20 (500 mg) chewable tablet (Antacid (calcium carbonate)) carvedilol 12.5 mg tablet 12.5 mg PO DAILY 07/14/20 07/14/20 furosemide 80 mg tablet 80 mg PO PRN PRN 07/14/20 07/14/20 Previous Rx's Medication Instructions Recorded doxycycline hyclate 100 mg capsule 100 mg PO BID 3 Days #7 cap 06/13/21 Allergies Allergy/AdvReac Type Severity Reaction Status Date / Time Penicillins Allergy Unknown Verified 06/15/21 16:15 Review of Systems Review of Systems ROS Unobtainable: Unobtainable due to medical condition and Unobtainable due to mental status/LOC Patient History Medical History Peritoneal dialysis catheter in place Renal failure Social History Smoking Status: Never smoker Smoking Status: Never smoker alcohol intake frequency: other Substance Use Type: does not use Exam Narrative Exam Narrative: General: frail appearing woman with significant contusions abrasions and lacerations to her face, GCS is estimated at 13 for decreased level of consciousness. Because of the swelling to her eyes she is unable to open her eyes for complete GCS calculation. HEENT: Laceration to the left side of her upper lip, dental injuries and underlying maxillary injury, Teeth 8 and 9 Neck: C-collar is in place Respiratory: Lungs are clear to auscultation, no wheezing no rales no rhonchi. Full and symmetrical air movement Cardiac: Regular rate and rhythm no murmurs no bruits Chest: No obvious trauma to the chest or torso. Abdomen: Soft, nontender, good bowel tones, no flank pain. Peritoneal dialysis catheter in place Skin: Very thin with multiple bruises in various stages of healing. She has a skin tear to the right elbow, left elbow, left hand. Multiple prior skin tears in various stages of healing. She has a large laceration over the left knee that has been repaired and remains intact. She has an area of hematoma that is slightly weeping over the left anterior baxter related to the injury to the left knee and skin degloving injury 3 weeks ago Neurologic: Moving all extremities but not interacting fully with questions an overall exam Extremities: Multiple areas of superficial trauma with no obvious bony deformities or point to bony tenderness Psych: Decreased overall mental status Initial Vital Signs Initial Vital Signs: Vital Signs Temperature 95.9 F L 06/15/21 14:16 Pulse Rate 100 H 06/15/21 14:16 Respiratory Rate 22 06/15/21 14:16 Blood Pressure 150/68 H 06/15/21 14:16 Course Orders Ordered: ED Orders 06/15/21 13:57 XR chest 1V Stat EKG-12 Lead Stat 06/15/21 14:03 COVID19 -Nasal swab/Pre-Proc Stat Complete Blood Count AUTO DIFF Stat Comprehensive Metabolic Panel Stat Lipase Stat Magnesium Stat Partial Thromboplastin Time Stat Prothrombin Time INR Stat Troponin & CK Cardiac Panel Stat 06/15/21 14:08 CT cervical spine wo con Stat 06/15/21 14:09 CT facial bones wo con Stat CT head/brain wo con Stat Hydromorphone HCl (Hydromorphone 0.5 Mg Inj) 0.5 mg IV Q15MIN PRN PRN Reason: Pain, Discontinued Medications Ondansetron HCl (Ondansetron 4 Mg/2 Ml Inj) 4 mg IV NOW ONE Stop: 06/15/21 14:09 Last Admin: 06/15/21 14:37 Dose: 4 mg Documented by: CHUCK Vital Signs Vital signs: Vital Signs - 8 hr 06/15/21 14:16 06/15/21 14:20 06/15/21 14:32 Temperature 95.9 F L 96.7 F L Pulse Rate 100 H 113 H 98 H Respiratory Rate 22 15 Blood Pressure 150/68 H 127/71 Pulse Oximetry 98 94 06/15/21 14:45 06/15/21 15:00 06/15/21 15:15 Temperature Pulse Rate 99 H 100 H 100 H Respiratory Rate 20 28 H 19 Blood Pressure 129/61 128/62 132/62 Pulse Oximetry 93 94 95 06/15/21 15:30 06/15/21 15:45 06/15/21 16:00 Temperature Pulse Rate 99 H 100 H 100 H Respiratory Rate 25 H 20 22 Blood Pressure 126/60 122/60 133/63 Pulse Oximetry 94 98 97 Medical Decision Making Lab Data Result diagrams: 06/15/21 14:03 06/15/21 14:03 Labs: Lab Results 06/15/21 06/15/21 06/15/21 Range/Units 14:03 14:03 14:03 WBC 12.5 H (4.5-11.0) X10^3/uL RBC 3.29 L (4.0-5.2) X10^6/uL Hgb 10.0 L (12.0-16.0) g/dL Hct 32.0 L (36-46) % MCV 97.1 (80-100) fL MCH 30.3 (26-34) PG MCHC 31.2 (30-36) % RDW 19.6 H (11.6-14.8) % Plt Count 289 (150-400) X10^3/uL Neut % (Auto) 90.9 H (50-75) % Lymph % (Auto) 2.5 L (25-40) % Armstrong % (Auto) 6.1 (3-14) % Eos % (Auto) 0.3 L (2-4) % Baso % (Auto) 0.2 (0-2) % Neut # (Auto) 48462 H (5609-3466) /uL Lymph # (Auto) 300 L (2759-6851) /uL Armstrong # (Auto) 800 (0-900) /uL Eos # (Auto) 0 (0-450) /uL Baso # (Auto) 0 (0-100) /uL PT 13.8 H (10.1-12.7) SECONDS INR 1.2 (0.9-1.3) APTT 33 D (26.4-36.2) SECONDS Sodium 137 (137-145) mmol/L Potassium 4.7 (3.4-5.1) mmol/L Chloride 99 (98-107) mmol/L Carbon Dioxide 22 (22-32) mmol/L BUN 115 H* (7-17) mg/dL Creatinine 10.51 H* (0.52-1.04) mg/dL Estimated GFR 3.6 L (>60) mL/min BUN/Creatinine Ratio 10.9 (6-22) Glucose 125 H (80-110) mg/dL Calcium 8.4 (8.4-10.2) mg/dL Magnesium 1.8 (1.6-2.3) mg/dL Total Bilirubin 0.5 (0.2-1.3) mg/dL AST 60 H (14-36) IU/L ALT 32 (<35) IU/L Alkaline Phosphatase 194 H (38-126) U/L Total Creatine Kinase 410 H (30-135) U/L CK-MB (CK-2) 13.40 H (<2.37) ng/mL CK-MB (CK-2) Rel Index 3.3 (1.5-5.0) % Troponin I 0.064 H (0.01-0.034) ng/mL Total Protein 5.9 L (6.3-8.2) g/dL Albumin 2.8 L (3.5-5.0) g/dL Globulin 3.1 (1.7-4.1) g/dL Albumin/Globulin Ratio 0.9 L (1.0-2.8) Lipase 432 H (23-300) U/L SARS-CoV-2 (PCR) (Negative) 06/15/21 Range/Units 14:03 WBC (4.5-11.0) X10^3/uL RBC (4.0-5.2) X10^6/uL Hgb (12.0-16.0) g/dL Hct (36-46) % MCV (80-100) fL MCH (26-34) PG MCHC (30-36) % RDW (11.6-14.8) % Plt Count (150-400) X10^3/uL Neut % (Auto) (50-75) % Lymph % (Auto) (25-40) % Armstrong % (Auto) (3-14) % Eos % (Auto) (2-4) % Baso % (Auto) (0-2) % Neut # (Auto) (4871-3459) /uL Lymph # (Auto) (8156-8026) /uL Armstrong # (Auto) (0-900) /uL Eos # (Auto) (0-450) /uL Baso # (Auto) (0-100) /uL PT (10.1-12.7) SECONDS INR (0.9-1.3) APTT (26.4-36.2) SECONDS Sodium (137-145) mmol/L Potassium (3.4-5.1) mmol/L Chloride (98-107) mmol/L Carbon Dioxide (22-32) mmol/L BUN (7-17) mg/dL Creatinine (0.52-1.04) mg/dL Estimated GFR (>60) mL/min BUN/Creatinine Ratio (6-22) Glucose (80-110) mg/dL Calcium (8.4-10.2) mg/dL Magnesium (1.6-2.3) mg/dL Total Bilirubin (0.2-1.3) mg/dL AST (14-36) IU/L ALT (<35) IU/L Alkaline Phosphatase (38-126) U/L Total Creatine Kinase (30-135) U/L CK-MB (CK-2) (<2.37) ng/mL CK-MB (CK-2) Rel Index (1.5-5.0) % Troponin I (0.01-0.034) ng/mL Total Protein (6.3-8.2) g/dL Albumin (3.5-5.0) g/dL Globulin (1.7-4.1) g/dL Albumin/Globulin Ratio (1.0-2.8) Lipase (23-300) U/L SARS-CoV-2 (PCR) Negative (Negative) Imaging Data CT Head: Radiologist's Impression: FINDINGS:? Image quality:? Excellent.? ? CSF spaces:? Basal cisterns are patent.? No extra-axial fluid collections.? The ventricles are symmetric in size and shape.? ? Brain:? There is cerebral volume loss for age, with resultant ventricular and sulcal prominence.? There are periventricular and deep white matter chronic small vessel ischemic changes.? There is intracranial internal carotid artery atherosclerosis.? ? Focal hyperdense hemorrhagic contusion noted in the mid left temporal lobe on axial image 06/28 measuring 10 x 3 mm.? No mass effect or midline shift.? Smaller hypodensity noted in the right temporal lobe as well. ? Skull and face:? Calvarium and visualized facial bones appear intact, without suspicious lesions.? Comminuted facial bone fractures with debris in the left maxillary sinus noted ? Sinuses:? As above ? IMPRESSION:? ? Focal 1 cm left temporal hemorrhagic contusion noted without mass effect or midline shift.? Smaller possible right temporal contusion. ? Comminuted facial bone fractures will be further discussed in dedicated CT facial bones report. ? Moderate atrophy and multifocal white matter chronic ischemic change? ? Note:? Critical results were discussed with Dr. Astudillo? at 01:52 PM [place] time on 06/15/21 ? Approved by: Santos Kovacs M.D. on 06/15/2021 at 13:53? Facial CT: Radiologist's Impression: FINDINGS: ? Maxillofacial Bones:? Comminuted bilateral facial bones fractures present.? Both pterygoid plates show comminuted fractures.? On the right, there are fractures through the anterior, posterior and medial chow of the maxillary sinus.? There is fracture through the posterior alveolar ridge, base of the zygomatic arch and lateral orbital wall.? On the left, there is a fracture through the orbital floor, lateral, anterior medial maxillary sinus, and zygomatic arch.? Comminuted nasal bone fracture no rogelio. ? Mandible:? Nondisplaced fracture through the right mandibular condylar process associated with fracture through the anterior wall of the external auditory canal as well. ? Dentition:? Maxillary carious and periodontal disease noted with absent maxillary incisors ? Soft tissues:? Associated mass of facial soft tissue swelling is noted particularly involving the periorbital soft tissues as well as over the bridge of the nose.? Soft tissue air present along the floors of both extraconal orbits as well as the left malar eminence and over the bridge of the nose. ? Orbits:? As above.? Nondisplaced bilateral orbital floor fractures without evidence of ocular muscle entrapment.? Small amount of intraorbital extraconal soft tissue hemorrhage noted along the floor of the left orbit.? Ocular globes and both lenses are intact ? Sinuses and Mastoid:? Left maxillary inter sinus hemorrhage.? The right maxillary sinus is relatively clear.? Bilateral ethmoid sinus debris.? Air-fluid level present in the sphenoid sinus. ? ? IMPRESSION:? ? 1. Comminuted facial bone fractures detailed above including both pterygoid plates, probably reflects in a near complete LeFort type 2 fracture.? ? 2. Nondisplaced fractures through the right mandibular condyle and anterior wall of the external auditory canal.? ? 3. Associated soft tissue swelling with soft tissue air.? No radiopaque foreign body.? ? ? Approved by: Santos Kovacs M.D. on 06/15/2021 at 14:08? Chest x-ray: Radiologist's Impression: ?? CT - cervical spine: Radiologist's Impression: FINDINGS:? Image quality:? Excellent.? ? Bones:? Disc space narrowing and degenerative endplate changes noted particularly at C3-4, C4-5 and C5-6.? No evidence of fracture or traumatic malalignment.? Hypertrophic facet joints result in foraminal stenosis at C3-4, C4-5 and C5-6.? Moderate central stenosis present at C5-6. ? Soft tissues:? Prevertebral soft tissues are normal in thickness.? No paravertebral hematomas.? No apical pneumothoraces.? Advanced pulmonary emphysema partially imaged.? Atherosclerotic vascular calcification noted involving the aortic arch. ? ? IMPRESSION:? ? 1. Multilevel degenerative disc disease and arthropathy results in moderate central stenosis at C5-6. ? 2. Partially visualized comminuted facial bone fractures are further discussed in CT face report.? ? 3. Partially imaged pulmonary emphysema and aortic atherosclerosis. ? Approved by: Santos Kovacs M.D. on 06/15/2021 at 14:13? ECG Data Interpretation: Sinus rhythm at a rate of 98 Poor R-wave progression. No acute ischemic changes. Normal intervals, normal axis MDM Narrative Medical decision making narrative: 70-year-old woman on peritoneal dialysis stumbled and fell at home in the bathroom landing with majority of the force of the fall on her mid maxilla. Phone call from radiology indicating focal hyperdense hemorrhagic contusion in the left mid temporal lobe measuring 10 x 3 mm no mass effect small hypodensity in the right temporal lobe as well. She also has multiple comminuted bilateral facial fractures that will likely fall into the LeFort 2 classification. Cervical spine shows no pathology. Her is now available. Reviewed findings and concerns. They have had end of life discussions and she is very clearly a DNR/DNI with full treatment up to that point. Her blood pressures been stable but her mental status is declining. She is becoming less responsive to questions. She is maintaining her airway. Again confirmed with her that she is not on anticoagulant 2pm [facility] transfer has been initiated. 355pm Initial call back from [facility] is with , facial trauma service. Her recommendation was to talk with Neurosurgery given the temporal hemorrhagic contusion and decreasing mental status. I did ask transfer center personnel if this might be an appropriate ED the ED transfer given the trauma, small intraparenchymal bleed and decreasing GCS. She told me that she would page Neurosurgery at this time. 4:[address] Lawrence accepting ED to ED transfer to [facility]. Airlift is activated. Critical Care Time Critical Care Time Critical Care Time: Yes Total Critical Care Time: 37 Attestation: Critical care time is separate from other billable procedures. There is a high probability of a significant, sudden or life-threatening deterioration that requires my full and direct attention, intervention and personal management. This critical care time includes consultation with family and other consulting doctors, review of records, and interpretation of data from labs, EKGs and imaging as well as managements of acute trauma with facial fractures and decrease in level of consciousness. Pt is DNR/DNI, longstanding and her is very clear about this with patient agreeing. Discharge Plan Departure Patient Disposition: [facility] Clinical Impression: Traumatic intraparenchymal hemorrhage, Extensive facial fractures, Altered mental status, Peritoneal dialysis status, Chronic kidney disease with end stage renal failure on dialysis, Skin tear of elbow without complication, Skin tear of right hand without complication Mandibular fracture Qualifiers: Encounter type: initial encounter Fracture type: closed Mandible location: condylar process Laterality: right Qualified Code(s): S02.611A - Fracture of condylar process of right mandible, initial encounter for closed fracture Prescriptions: No Action carvedilol 12.5 mg tablet 12.5 mg PO DAILY 0RF furosemide 80 mg tablet 80 mg PO PRN PRN (Reason: fluid overload) 0RF calcium carbonate [Antacid (calcium carbonate)] 200 mg calcium (500 mg) Tablet,Chewable 200 mg PO TID 0RF doxycycline hyclate 100 mg capsule 100 mg PO BID 3 Days Qty: 7 0RF
--- NOTE | 2021-06-15 14:08 | DI.CT.S_ITS ---
PROCEDURE: CT CERVICAL SPINE WO CON INDICATIONS: fall TECHNIQUE: Noncontrast 3 mm thick sections acquired from the skull base to the T4 level. Sagittal and coronal reformats were then constructed. For radiation dose reduction, the following was used: automated exposure control, adjustment of mA and/or kV according to patient size. COMPARISON: None. FINDINGS: Image quality: Excellent. Bones: Disc space narrowing and degenerative endplate changes noted particularly at C3-4, C4-5 and C5-6. No evidence of fracture or traumatic malalignment. Hypertrophic facet joints result in foraminal stenosis at C3-4, C4-5 and C5-6. Moderate central stenosis present at C5-6. Soft tissues: Prevertebral soft tissues are normal in thickness. No paravertebral hematomas. No apical pneumothoraces. Advanced pulmonary emphysema partially imaged. Atherosclerotic vascular calcification noted involving the aortic arch. IMPRESSION: 1. Multilevel degenerative disc disease and arthropathy results in moderate central stenosis at C5-6. 2. Partially visualized comminuted facial bone fractures are further discussed in CT face report. 3. Partially imaged pulmonary emphysema and aortic atherosclerosis. Approved by: Santos Kovacs M.D. on 06/15/2021 at 14:13
--- NOTE | 2021-06-15 14:09 | DI.CT.S_ITS ---
PROCEDURE: CT FACIAL BONES WO CON INDICATIONS: fall, landing on maxilla TECHNIQUE: Noncontrast 2.5 mm thick axial images acquired from the mandible through the frontal sinuses, with coronal and sagittal reformatting. For radiation dose reduction, the following was used: automated exposure control, adjustment of mA and/or kV according to patient size. COMPARISON: None. FINDINGS: Maxillofacial Bones: Comminuted bilateral facial bones fractures present. Both pterygoid plates show comminuted fractures. On the right, there are fractures through the anterior, posterior and medial chow of the maxillary sinus. There is fracture through the posterior alveolar ridge, base of the zygomatic arch and lateral orbital wall. On the left, there is a fracture through the orbital floor, lateral, anterior medial maxillary sinus, and zygomatic arch. Comminuted nasal bone fracture noted. Mandible: Nondisplaced fracture through the right mandibular condylar process associated with fracture through the anterior wall of the external auditory canal as well. Dentition: Maxillary carious and periodontal disease noted with absent maxillary incisors Soft tissues: Associated mass of facial soft tissue swelling is noted particularly involving the periorbital soft tissues as well as over the bridge of the nose. Soft tissue air present along the floors of both extraconal orbits as well as the left malar eminence and over the bridge of the nose. Orbits: As above. Nondisplaced bilateral orbital floor fractures without evidence of ocular muscle entrapment. Small amount of intraorbital extraconal soft tissue hemorrhage noted along the floor of the left orbit. Ocular globes and both lenses are intact Sinuses and Mastoid: Left maxillary inter sinus hemorrhage. The right maxillary sinus is relatively clear. Bilateral ethmoid sinus debris. Air-fluid level present in the sphenoid sinus. IMPRESSION: 1. Comminuted facial bone fractures detailed above including both pterygoid plates, probably reflects in a near complete LeFort type 2 fracture. 2. Nondisplaced fractures through the right mandibular condyle and anterior wall of the external auditory canal. 3. Associated soft tissue swelling with soft tissue air. No radiopaque foreign body. Approved by: Santos Kovacs M.D. on 06/15/2021 at 14:08
--- NOTE | 2021-06-15 14:09 | DI.CT.S_ITS ---
PROCEDURE: CT HEAD/BRAIN WO CON INDICATIONS: fall, hit head, decreased LOC TECHNIQUE: Noncontrast 4.5 mm thick angled axial sections acquired from the foramen magnum to the vertex, with coronal and sagittal reformats. For radiation dose reduction, the following was used: automated exposure control, adjustment of mA and/or kV according to patient size. COMPARISON: [facility], CT, CT CERVICAL SPINE WO CON, 06/15/2021, 14:14. [facility], CT, CT FACIAL BONES WO CON, 06/15/2021, 14:14. FINDINGS: Image quality: Excellent. CSF spaces: Basal cisterns are patent. No extra-axial fluid collections. The ventricles are symmetric in size and shape. Brain: There is cerebral volume loss for age, with resultant ventricular and sulcal prominence. There are periventricular and deep white matter chronic small vessel ischemic changes. There is intracranial internal carotid artery atherosclerosis. Focal hyperdense hemorrhagic contusion noted in the mid left temporal lobe on axial image 2/11 measuring 10 x 3 mm. No mass effect or midline shift. Smaller hypodensity noted in the right temporal lobe as well. Skull and face: Calvarium and visualized facial bones appear intact, without suspicious lesions. Comminuted facial bone fractures with debris in the left maxillary sinus noted Sinuses: As above IMPRESSION: Focal 1 cm left temporal hemorrhagic contusion noted without mass effect or midline shift. Smaller possible right temporal contusion. Comminuted facial bone fractures will be further discussed in dedicated CT facial bones report. Moderate atrophy and multifocal white matter chronic ischemic change Note: Critical results were discussed with Dr. Astudillo at 01:52 PM [place] time on 06/15/21 Approved by: Santos Kovacs M.D. on 06/15/2021 at 13:53
[2021-06-15 14:31] LABS: Add Manual Diff / Slide Review NO; Basophils Absolute Auto 0 /uL (0-100); Basophils Percent Auto 0.2 % (0-2); Eosinophils Absolute Auto 0 /uL (0-450); Eosinophils Percent Auto 0.3 % (2-4); Lymphocytes Absolute Auto 300 /uL (1100-4500); Lymphocytes Percent Auto 2.5 % (25-40); Mean Corpuscular HGB Conc 31.2 % (30-36); Mean Corpuscular Hemoglobin 30.3 PG (26-34); Mean Corpuscular Volume 97.1 fL (80-100); Monocytes Absolute Auto 800 /uL (0-900); Monocytes Percent Auto 6.1 % (3-14); Neutrophils Absolute Auto 11400 /uL (1500-7000); Neutrophils Percent Auto 90.9 % (50-75); Platelet Count 289 X10^3/uL (150-400); Red Blood Cell Count 3.29 X10^6/uL (4.0-5.2); Red Cell Distribution Width 19.6 % (11.6-14.8); White Blood Cell Count 12.5 X10^3/uL (4.5-11.0)
[2021-06-15 14:35] LABS: INR 1.2 (0.9-1.3); Prothrombin Time 13.8 SECONDS (10.1-12.7)
[2021-06-15] MEDS: ONDANSETRON 4 MG/2 ML INJ IV (14:37)
[2021-06-15 14:38] LABS: PTT Partial Thromboplastin Tim 33 SECONDS (26.4-36.2)
[2021-06-15 14:44] LABS: Alanine Aminotransferase 32 IU/L (<35); Albumin 2.8 g/dL (3.5-5.0); Alkaline Phosphatase 194 U/L (38-126); Aspartate Aminotransferase 60 IU/L (14-36); Bilirubin Total 0.5 mg/dL (0.2-1.3); Calcium 8.4 mg/dL (8.4-10.2); Carbon Dioxide 22 mmol/L (22-32); Chloride 99 mmol/L (98-107); Creatine Kinase 410 U/L (30-135); Globulin 3.1 g/dL (1.7-4.1); Glucose 125 mg/dL (80-110); Magnesium 1.8 mg/dL (1.6-2.3); Potassium 4.7 mmol/L (3.4-5.1); Sodium 137 mmol/L (137-145); Total Protein 5.9 g/dL (6.3-8.2)
[2021-06-15 14:45] LABS: Albumin Globulin Ratio 0.9 (1.0-2.8); Lipase 432 U/L (23-300)
[2021-06-15 14:52] LABS: Blood Urea Nitrogen 115 mg/dL (7-17)
[2021-06-15 14:53] LABS: BUN Creatinine Ratio 10.9 (6-22); Estimated Glomerular Filt Rate 3.6 mL/min (>60); Troponin I 0.064 ng/mL (0.01-0.034)
[2021-06-15 14:54] LABS: COVID19 -Nasal RAPID Negative (Negative)
[2021-06-15 14:59] LABS: CKMB % Relative Index 3.3 % (1.5-5.0)
[2021-06-15] MEDS: ONDANSETRON 4 MG/2 ML INJ (17:18)
--- NOTE | 2021-06-15 17:27 | PC.NURSE ---
suctioned patient frequently every 20 mins. for bright red blood in her mouth. blood draining from her nose. nonadherant on chin. tucked in c-collar
== END 2021-06-15 17:32 | disposition short-term general hospital (02) ==
PROVIDERS: Emergency Provider Emergency Medicine
DX: S06.359A Traumatic hemorrhage of left cerebrum with loss of consciousness of unspecified duration, initial encounter (principal); S02.82XA Fracture of other specified skull and facial bones, left side, initial encounter for closed fracture; S02.81XA Fracture of other specified skull and facial bones, right side, initial encounter for closed fracture; S02.611A Fracture of condylar process of right mandible, initial encounter for closed fracture; K08.119 Complete loss of teeth due to trauma, unspecified class; N18.6 End stage renal disease; R03.0 Elevated blood-pressure reading, without diagnosis of hypertension; R41.82 Altered mental status, unspecified; W18.2XXA Fall in (into) shower or empty bathtub, initial encounter; Z99.2 Dependence on renal dialysis; Z91.81 History of falling; Z20.822 Contact with and (suspected) exposure to COVID-19
CPT/HCPCS: 36415; 70450; 70486; 71045; 72125; 80053; 82550; 82553; 83690; 83735; 84484; 85025; 85610; 85730; 87635; 93005; 96374; 99285; 99291; C9803; G0390; J2405